=== PATIENT | female | born 1965 | race Caucasian/White ===

== ENCOUNTER 2017-09-21 10:03 | Inpatient (IN) ==
--- NOTE | 2017-09-21 09:32 | Anesthesia Evaluation PreOp ---
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) Anesthesia History: No Prior Anesthetic Complications, Past Anesthesia (RAJNI, C/S ) : No Alcohol Use: none Drug use: none Medications and Allergies Acyclovir [Zovirax] 400 mg PO BID 09/03/17 [History] Budesonide/Formoterol 160/4.5 [Symbicort 160/4.5] 1 puff IH BIDR 09/03/17 [ History] Clopidogrel [Plavix] 75 mg PO DAILY 09/03/17 [History] DULoxetine [Cymbalta] 30 mg PO DAILY 09/03/17 [History] Dronabinol [Marinol] 5 mg PO BID 09/03/17 [History] Efavirenz/Emtricitab/Tenofovir [Atripla Tablet] 1 each PO DAILY 09/03/17 [ History] Fluticasone Propionate Nasal [Flonase] 1 spr NS DAILY 09/03/17 [History] Gabapentin [Neurontin] 2 tab PO HS 09/03/17 [History] Gabapentin [Neurontin] 300 mg PO BID 09/03/17 [History] Ipratropium/Albuterol Sulfate [Combivent Respimat Inhal [place]] 1 puff IH QID PRN 09/03/17 [History] Loratadine [Claritin] 10 mg PO DAILY 09/03/17 [History] Nitroglycerin [Nitrostat] 0.4 mg SL DAILY PRN 09/03/17 [History] Quetiapine Fumarate [Quetiapine Fumarate ER] 50 mg PO HS PRN 09/03/17 [History] diazePAM [Valium] 5 mg PO BID PRN 09/03/17 [History] Atorvastatin Calcium [Lipitor] 80 mg PO HS 09/21/17 [History] Famotidine [Pepcid] 20 mg PO DAILY 09/21/17 [History] Metoprolol XL (24 HR) Succ [Toprol XL] 25 mg PO HS 09/21/17 [History] 3 Allergy/AdvReac Type Severity Reaction Status Date / Time Sulfa (Sulfonamide Allergy Swelling Verified 09/21/17 10:45 Antibiotics) of Lip/Tongue/Throat acetaminophen [From [place]] AdvReac Rash Verified 09/21/17 10:45 codeine AdvReac Rash Verified 09/21/17 10:45 hydrocodone [From [place]] AdvReac Rash Verified 09/21/17 10:45 Penicillins [PCN] AdvReac Rash Verified 09/21/17 10:45 - Meds/Allergy Pre-op Review Medications Reviewed: Yes Allergies Reviewed: Yes Beta Blockers on Current Med List: Yes If Beta Blockers taken, Date/Time (Last Dose taken): 09-20-17 at 1900 Anesthesia Results - Labs Laboratory Tests 09/20/17 09/20/17 15:25 15:25 Hgb 14.0 Hct 43.8 Sodium 139 Potassium 3.4 L Carbon Dioxide 28 BUN 9 - Imaging Additional studies: echo: Impressions: LVEF 60%. Mild left ventricular diastolic dysfunction. Normal right ventricular structure and function. No significant valve dysfunction. No pulmonary hypertension. There is a trivial pericardial effusion present located along the RV border. No tamponade. Anesthesia Exam Selected Entries 09/21/17 10:35 Temperature 98.1 F Pulse Rate 85 Respiratory Rate 18 Blood Pressure 94/54 O2 Sat by Pulse Oximetry 91 Oxygen Delivery Method Room Air Weight: 49kg - HEENT Pupil (Motor): EOMI Mallampati: II Teeth: Edentulous Oral Opening: Greater than 3 - BILL DISTRIBUTOR LOC: Oriented BILL DISTRIBUTOR Motor: Normal RUE, Normal LUE, Normal RLE, Normal LLE, Normal Face BILL DISTRIBUTOR Sensory: Normal: RUE, LUE, RLE, LLE, Face - Cardiac Rhythm: Regular Murmur: None - Pulmonary Breath Sounds: bilateral Clear Respiratory Effort: Symmetrical Anesthesia Assess/Plan ASA Score: 3 Modified Marley Scale for Level of Consciousness: Cooperative, oriented, and tranquil Anesthetic Plan: General Monitoring Plan: Standard Monitors, A-Line Recovery Plan: PACU (agrees to GA and a-line)
[2017-09-21] MEDS ORDERED: Lidocaine -MPF 2% 2 ML VIAL ONE ×2 (10:29→10:39)
[2017-09-21] MEDS ORDERED: *HR* Rocuronium Bromide 50 MG/5 ML VIAL ONE (10:29)
[2017-09-21] MEDS ORDERED: *HR* Midazolam HCl 2 MG/2 ML VIAL ONE (10:30)
[2017-09-21] MEDS ORDERED: *HR* Propofol 200 MG/20 ML VIAL IVP ONE (10:30)
[2017-09-21] MEDS ORDERED: *HR* FentaNYL (PF) 100 MCG/2 ML VIAL ONE (10:30)
[2017-09-21] MEDS ORDERED: CeFAZolin Syr 2,000MG/20 ML 2,000 MG/20 ML SYRINGE IVPB ONE (10:32)
[2017-09-21] MEDS ORDERED: Albuterol 2.5 MG/3 ML NEBULIZER IH ONE (10:32)
[2017-09-21] MEDS ORDERED: Lidocaine -MPF 1% 2 ML VIAL ID ONE (10:32)
[2017-09-21] MEDS ORDERED: Plasma-Lyte A (PH 7.4) 1,000 ML IVC SCH (10:45)
[2017-09-21] MEDS ORDERED: Heparin 1,000 UNITS/500 mL 500 ML ONE (11:07)
[2017-09-21] MEDS ORDERED: ceFAZolin 1,000 MG, Sodium Chloride IRRigation 1,000 ML IR ONE ×2 (11:10)
[2017-09-21] MEDS ORDERED: *HR* Remifentanil 2 MG VIAL IVP ONE (11:16)
[2017-09-21] MEDS ORDERED: Lidocaine 1% 20 ML MDV ONE (11:27)
[2017-09-21] MEDS ORDERED: Heparin 1,000 UNITS/500 mL 1,000 ML ONE (11:27)
--- NOTE | 2017-09-21 11:31 | History & Physical Report ---
Date of Encounter: 09/21/17 Time of Encounter: 11:15 24 Hour HP Update - Instructions Instructions: If the History and Physical is less than 30 days old and was completed prior to A.M. admission and or procedure and has NOT been updated on calendar day of procedure please complete this update prior to performing procedure. - Update Patient reports changes in Medical Condition: No Changes in examination, assessment, or condition: No Changes in Medication: No Preop tests/diagnostics Reviewed: Yes Surgery Remains Indicated: Yes Consent for Planned Operative Procedure(s) Verified: Yes - Pre-Operative Checklist Preoperative Checklist Indicated: Yes Prophylactic Antibiotic Ordered: Yes Home Medications Include Beta Handy: Yes Beta Handy Taken Today (Day of Surgery): Yes Beta Handy Taken Yesterday (Day Prior to Surgery): Yes Is VTE Prophylaxis Indicated?: Yes
[2017-09-21] MEDS ORDERED: *HR* Phenylephrine 10 MG/ML VIAL ONE (11:32)
[2017-09-21] MEDS ORDERED: Nitroglycerin 0.4 MG TAB.SUBL SL PRN ×2 (11:33→22:23)
[2017-09-21] MEDS ORDERED: IPRATROPIUM IH SCH (11:33)
[2017-09-21] MEDS ORDERED: ALBUTEROL SULFATE IH SCH (11:33)
[2017-09-21] MEDS ORDERED: diazePAM 5 MG TABLET PO PRN (11:33)
[2017-09-21] MEDS ORDERED: Lidocaine -MPF 4% 5 ML AMPUL ONE (11:34)
[2017-09-21] MEDS ORDERED: EPHEDrine 50 MG/ML VIAL ONE (12:22)
--- NOTE | 2017-09-21 12:23 | Anesthesia Procedures ---
Date of Encounter: 09/21/17 Time of Encounter: 12:20 Procedures: Anesthesia - Central Line Placement Right SC Consent obtained: verbal consent Time out performed: Yes Patient placed on monitor/pulse ox: Yes MD prep: mask, gown, gloves Central line prep: Chlorhexidine scrub Ultrasound used for placement: No Technique: Seldinger Lumen Inserted: triple Size / Length: 7 Fr / 16 cm Post procedure: sutured in place, good blood return, all ports aspirated, flushed, capped, sterile dressing applied Patient tolerated procedure: well, no complications Complications: none (indication was no peripheral iv access. We were able to place a 22ga to get patient off to sleep. Placed right subclavian easily. No arrythmias with guidewire placement. All ports easy blood drawn and flushed with 10cc each with NS)
[2017-09-21] MEDS ORDERED: *HR* Heparin 5,000 UNIT/ML VIAL ONE (13:03)
[2017-09-21] MEDS ORDERED: Water for inj. (sterile) 10 ML IV ONE (13:04)
[2017-09-21] MEDS ORDERED: Ondansetron 4 MG/2 ML VIAL IVP ONE (13:22)
[2017-09-21] MEDS ORDERED: Ketorolac 15 MG/ML VIAL IVP ONE (13:22)
[2017-09-21] MEDS ORDERED: Neostigmine Methylsulfate 3 MG/3 ML SYRINGE ONE (14:17)
[2017-09-21] MEDS ORDERED: Dexamethasone 4 MG/ML VIAL ONE (14:17)
--- NOTE | 2017-09-21 14:36 | Operative Note ---
Date of procedure: 09/21/17 Pre-op diagnosis: bilateral carotid stenosis Post-op diagnosis: same Procedure: left carotid endarterectomy with 8 Fr shunt and bovine patch angioplasty Complications: none Anesthesia: GETA Surgeon: Eber Bragg Was there an hearing and speech assistant present: No Estimated blood loss (cc): 75 Specimen: none Condition: stable Disposition: PACU Procedure in Detail: History Cheryl Matias is a 52-year-old white female was found to have a carotid bruit and abnormal carotid duplex scan. This then led to a carotid artery angiogram. This demonstrated bilateral carotid artery stenosis. The degree of stenosis actually appeared to be more significant on the left side than on the right even though the noninvasive testing suggested the right side was more stenotic and so therefore the left carotid was recommended to be performed first. Procedure After informed consent was obtained the patient was taken to the operating room. General endotracheal anesthesia was established under arterial line pressure monitoring. Due to difficulty with venous access a central line was placed to secure appropriate access for anesthetic meds and perioperative care. This was placed by Dr. Mike via the right subclavian vein. The left neck was then sterilely prepped and draped. A timeout protocol was observed. An oblique incision was then made on the left neck paralleling the anterior border of the sternocleidomastoid muscle. Dissection was carried down to the carotid sheath. Selective control was obtained of the carotid vessels. The vessels and cells are relatively small in diameter. There appeared to be inflammatory tissue surrounding the vessel. There also were number of superficial veins present. After the controls obtained with Vesseloops 4000 units of heparin were administered intravenously. After 3 minutes later the vessels were clamped with the internal carotid artery clamped first. An 11 blade knife and Michele scissors were used to open the carotid artery. An 8 Welsh shunt was then inserted atraumatically. Patency of the shunt was confirmed by the use of intraoperative Doppler. Evaluation of the plaque revealed heterogeneous atherosclerotic material. There is no significant calcification present. There are no signs of intraluminal thrombus. A dissection plane was then initiated at the distal aspect of the common carotid artery. This was then dissected circumferentially. Dissection was carried both proximally and distally. The orifice of the superior thyroid and external carotid artery were also endarterectomized. The endpoint on the distal internal carotid artery was smooth. No tacking sutures were necessary. The bed of the vessels then inspected for any residual debris. A bovine pericardial patch angioplasty was then performed. This was sewn into position using 2 6-0 Prolene sutures. Leaving a small space open on the suture line the shunt was clamped divided and removed. The final few sutures were placed. The internal carotid was allowed to backbleed and reclamped. The external and common were then opened and then finally the internal was reopened. There was no hemodynamic distress with this maneuver. Excellent pulsations and Doppler signals were identified throughout the carotid system. A superficial cervical block was then performed using half percent [place]. The wound was irrigated with antibiotic containing solution. Hemostasis was achieved. The wound was then closed in layers using absorbable suture. No drains were placed. A dry sterile dressing was applied to the skin edges. The patient was then reversed from anesthesia and extubated in the operating room. She was found to be neurologically intact. The patient was then transported to the recovery room in stable condition. There were no intraoperative complications.
[2017-09-21] MEDS ORDERED: *HR* OxyCODONE Immed Rel 5 MG TABLET PO ONE (15:18)
[2017-09-21] MEDS ORDERED: *HR* Meperidine 25 MG/ML SYRINGE IVP PRN (15:23)
[2017-09-21] MEDS ORDERED: Ringers Solution, Lactated 1,000 ML IVC SCH (15:30)
--- NOTE | 2017-09-21 16:01 | Anesthesia Evaluation Post Op ---
Date of Encounter: 09/21/17 Time of Encounter: 16:00 - Vital Signs Vital Signs: Selected Entries 09/21/17 15:40 09/21/17 15:50 Temperature 98.0 F Pulse Rate 63 Respiratory Rate 16 Blood Pressure 98/45 O2 Sat by Pulse Oximetry 97 Oxygen Flow Rate (LPM) 2 - Lungs Lungs: Clear Ascult./Percussion - Airway Airway: Non-obstructed - Cardiovascular Regular Rate - Mental Status Mental Status: Alert & Oriented, Answers Appropriately - Pain Pain Scale: 1 Pain Scale used: Numeric (1 - 10) - Nausea Vomiting Nausea Vomiting: Not Present - Hydration Hydration: Ice chips, Has not voided - Discharge PostOp Status: Transfer Patient to floor
[2017-09-21] MEDS ORDERED: traMADol 50 MG TABLET PO PRN (17:29)
[2017-09-21] MEDS ORDERED: Naloxone 0.4 MG/ML INJ IVP PRN (17:29)
[2017-09-21] MEDS ORDERED: Ondansetron 4 MG/2 ML VIAL IVP PRN (17:29)
[2017-09-21] MEDS ORDERED: Acetaminophen 325 MG TABLET PO PRN (17:29)
[2017-09-21] MEDS: *HR* Metoprolol 5 MG/5 ML VIAL IVP SCH ×2 (18:06→23:28)
[2017-09-21] MEDS: *HR* OxyCODONE Immed Rel 5 MG TABLET PO PRN (18:08)
[2017-09-21] MEDS: CeFAZolin Premix DUPLEX 2,000 MG/50 ML BAG IVPB SCH ×2 (18:08→23:44)
[2017-09-21] MEDS ORDERED: Gabapentin 300 MG CAPSULE PO SCH ×3 (21:00→22:30)
[2017-09-21] MEDS ORDERED: Acyclovir 200 MG CAPSULE PO SCH (21:00)
[2017-09-21] MEDS ORDERED: Metoprolol XL (24 HR) Succ 25 MG TAB.ER.24H PO SCH (21:00)
[2017-09-21] MEDS ORDERED: Budesonide/Formoterol 160/4.5 MDI IH SCH (22:00)
[2017-09-21] MEDS ORDERED: Ipratropium/Albuterol Neb 3 ML IH PRN (22:51)
[2017-09-21] MEDS: Metoprolol XL (24 HR) Succ 25 MG TAB.ER.24H PO SCH (23:28)
[2017-09-21] MEDS: diazePAM 5 MG TABLET PO PRN (23:44)
[2017-09-21] MEDS: Acyclovir 200 MG CAPSULE PO SCH (23:48)
[2017-09-21] MEDS: Budesonide/Formoterol 160/4.5 MDI IH SCH (23:51)
[2017-09-22] MEDS: *HR* Metoprolol 5 MG/5 ML VIAL IVP SCH ×2 (04:31→12:20)
[2017-09-22 05:17] LABS: Basophils % 0.3 %; Eosinophils # 0.1 K/mcL (0.0-0.6); Eosinophils % 1.1 %; Hematocrit 33.2 % (35.3-44.9); Immature Granulocytes % 0.3 % (0-4); Lymphocytes # 2.5 K/mcL (0.6-4.6); Lymphocytes % 33.8 %; Mean Corpuscular HGB Conc 32.5 g/dL (31.6-35.5); Mean Corpuscular Hemoglobin 33.3 pg (28.0-33.3); Mean Corpuscular Volume 102.5 fL (83.0-100.0); Mean Platelet Volume 10.3 fL (9.4-12.4); Monocytes # 0.6 K/mcL (0.0-1.3); Monocytes % 7.5 %; Neutrophils # 4.2 K/mcL (1.6-8.9); Platelet Count 207 K/mcL (140-400); Red Blood Count 3.24 M/mcL (3.82-4.97); Red Cell Distribution Width 14.1 % (11.5-14.5)
[2017-09-22 05:18] LABS: Hemoglobin 10.8 g/dL (11.5-15.4)
[2017-09-22 05:25] LABS: BUN/Creatinine Ratio 10 (6-26); Blood Urea Nitrogen 6 mg/dL (6-20); Calcium 8.5 mg/dL (8.6-10.3); Carbon Dioxide 32 mEq/L (23-29); Chloride 109 mEq/L (98-107); Glucose 89 mg/dL (70-105); Osmolality,Calculated 289 (280-300); Sodium 141 mEq/L (136-145); eGFR For African Americans > 60 (> 60); eGFR For Non-African Americans > 60 (> 60)
[2017-09-22] MEDS: Budesonide/Formoterol 160/4.5 MDI IH SCH (07:59)
[2017-09-22] MEDS ORDERED: Gabapentin 300 MG CAPSULE PO SCH (09:00)
[2017-09-22] MEDS ORDERED: Famotidine 20 MG TABLET PO SCH ×2 (09:00)
[2017-09-22] MEDS ORDERED: Loratadine 10 MG TABLET PO SCH ×2 (09:00)
[2017-09-22] MEDS ORDERED: Fluticasone Propionate Nasal 50 MCG/SPRAY BOTTLE NS SCH ×2 (09:00)
[2017-09-22] MEDS ORDERED: EFAVIRENZ/EMTRICITAB/TENOFOVIR 1 EACH TABLET PO SCH ×2 (09:00)
[2017-09-22] MEDS: Acyclovir 200 MG CAPSULE PO SCH (09:10)
[2017-09-22] MEDS: diazePAM 5 MG TABLET PO PRN (09:11)
[2017-09-22] MEDS: CeFAZolin Premix DUPLEX 2,000 MG/50 ML BAG IVPB SCH (09:12)
[2017-09-22] MEDS: Metoprolol XL (24 HR) Succ 25 MG TAB.ER.24H PO SCH (09:13)
[2017-09-22 11:20] VITALS: BP 116/69
--- NOTE | 2017-09-22 11:40 | Discharge Summary ---
Date of Encounter: 09/22/17 Time of Encounter: 11:38 - Discharge Diagnosis (1) Bilateral carotid artery stenosis Priority: Primary Status: Acute Comments: Patient was found to have asymptomatic carotid bruits. Duplex scan indicated significant stenosis. Antrum was obtained which demonstrated bilateral carotid artery stenosis. Patient was admitted for left carotid endarterectomy. She will need a right carotid endarterectomy in the future. (2) Coronary artery disease Priority: Secondary Status: Chronic Comments: Patient is status post coronary artery stent angioplasty. Qualifiers: Coronary Disease-Associated Artery/Lesion type: [place] artery [place] vs. transplanted heart: [place] heart Associated angina: without angina Qualified Code(s): I25.10 - Atherosclerotic heart disease of [place] coronary artery without angina pectoris (3) HIV positive Priority: Secondary Status: Chronic Comments: Patient is under medical treatment for HIV positive status. (4) Tobacco abuse Priority: Secondary Status: Chronic Comments: Patient has long history of tobacco abuse - Discharge Medications Home Medications: Acyclovir [Zovirax] 400 mg PO BID 09/03/17 [History] Budesonide/Formoterol 160/4.5 [Symbicort 160/4.5] 1 puff IH BIDR 09/03/17 [ History] Clopidogrel [Plavix] 75 mg PO DAILY 09/03/17 [History] DULoxetine [Cymbalta] 30 mg PO DAILY 09/03/17 [History] Dronabinol [Marinol] 5 mg PO BID 09/03/17 [History] Efavirenz/Emtricitab/Tenofovir [Atripla Tablet] 1 each PO DAILY 09/03/17 [ History] Fluticasone Propionate Nasal [Flonase] 1 spr NS DAILY 09/03/17 [History] Gabapentin [Neurontin] 2 tab PO HS 09/03/17 [History] Gabapentin [Neurontin] 300 mg PO BID 09/03/17 [History] Ipratropium/Albuterol Sulfate [Combivent Respimat Inhal [place]] 1 puff IH QID PRN 09/03/17 [History] Loratadine [Claritin] 10 mg PO DAILY 09/03/17 [History] Nitroglycerin [Nitrostat] 0.4 mg SL DAILY PRN 09/03/17 [History] Quetiapine Fumarate [Quetiapine Fumarate ER] 50 mg PO HS PRN 09/03/17 [History] diazePAM [Valium] 5 mg PO BID PRN 09/03/17 [History] Atorvastatin Calcium [Lipitor] 80 mg PO HS 09/21/17 [History] Famotidine [Pepcid] 20 mg PO DAILY 09/21/17 [History] Metoprolol XL (24 HR) Succ [Toprol Xl] 25 mg PO HS 09/21/17 [History] Allergies/Adverse Reactions: 3 Allergy/AdvReac Type Severity Reaction Status Date / Time Sulfa (Sulfonamide Allergy Swelling Verified 09/21/17 10:45 Antibiotics) of Lip/Tongue/Throat acetaminophen [From [place]] AdvReac Rash Verified 09/21/17 10:45 codeine AdvReac Rash Verified 09/21/17 10:45 hydrocodone [From [place]] AdvReac Rash Verified 09/21/17 10:45 Penicillins [PCN] AdvReac Rash Verified 09/21/17 10:45 Date of admission: 09/21/17 17:05 Primary care physician: Tony Garcia MD Consults: None Procedure(s) Performed: Left carotid endarterectomy with 8 [place] shunt and bovine pericardial patch angioplasty Discharging clinician: Eber Bragg Anticipated date of discharge: 09/22/17 - Patient Status Disposition: Home, Self-Care Condition: Good Functional capacity at discharge: independent ambulation Overall status at discharge: patient is progressing back to baseline - Discharge Instructions Instructions: Carotid Endarterectomy (DC) Follow Up With: Tony Garcia MD [Primary Care Provider] - 09/28/17 1:45 pm (Nan Zavala CNP) Eber Bragg MD [Partnered Physician] - Additional Instructions: Keep left neck incision dry for total of 5 days following surgery Resume usual home medications. No manual labor. No automobile driving. No lifting greater than 10 pounds. Follow-up in vascular surgery clinic in 2 weeks. - Diet and Activity Activity: increase activity as tolerated Diet: advance to your usual diet - Hospital Course Hospital course: Ms. Matias is a 52 year old female With bilateral carotid artery disease. The patient underwent left carotid endarterectomy under general endotracheal anesthesia. Patchy angioplasty was performed using bovine pericardium. The patient had no carissa-Procedural complications. She was neurologically intact. She was felt fit for discharge on the afternoon of postoperative day #1. The patient was given instructions in regards to diet and activities and wound care. - Time Spent with Patient Total time spent providing and/or coordinating discharge services: Exam Vital Signs, Last 4 Hours Temp Pulse Resp BP Pulse Ox 09/22/17 11:18 98.2 F 80 18 116/69 97 09/22/17 09:00 98.4 F 66 18 136/82 93 09/22/17 08:02 18 93 09/22/17 07:43 98.4 F 66 18 136/82 93 General: Present: Conversant, No Apparent Distress HEENT: Present: Atraumatic, Normocephaly, Trachea midline Neck: Absent: JVD, Midline deformity, Tracheal deviation Cardiac: Present: Reg Rate and Rhythm, Normal S1 and S2 Lungs: Present: Normal Breath Sounds Neuro: Present: Alert and responsive, No focal deficits noted, Cranial nerves grossly intact Vascular: Present: Surgical incisions (Left neck incision is clean and dry) Skin: Present: No rashes noted on visualized skin - VTE Documentation of Mechanical Device: Intermittent pneumatic compression device
[2017-09-22] MEDS: *HR* OxyCODONE Immed Rel 5 MG TABLET PO PRN ×2 (12:18→16:07)
== END 2017-09-22 16:40 | disposition home or self-care (01) | DRG 24 ==
LOC: SAMDAY 10:03 → 2NNU 17:05
PROVIDERS: ADMIT Surgery Vascular Surgery; ATTEND Surgery Vascular Surgery